=== PATIENT | male | born 1940 | race Caucasian/White ===

== ENCOUNTER 2021-02-11 16:21 | Inpatient (IN) | payer MEDICARE, OTHER ==
[~2021-02-11] VITALS: Ht 172.7 cm; Wt 62.4 kg
[2021-02-11] MEDS ORDERED: IV NORMAL SALINE 1,000ML 1,000 ML IV SCH (17:00)
--- NOTE | 2021-02-11 17:13 | EKG ---
[address] [address] Test Date: 2021-02-11 Test Time: 17:04:53 Pat Name: CLINTON KWOK Department: Room: Gender: M Table Runner: ESTIVEN : 1940 Requested By: RENETTA HURLEY Order Number: [id number] Reading MD: Measurements Intervals [place] Rate: 51 P: 37 [place]: 176 QRS: 69 QRSD: 102 T: 36 QT: 466 QTc: 431 Interpretive Statements SINUS RHYTHM ATRIAL PREMATURE COMPLEX(ES) R-S TRANSITION ZONE IN V LEADS DISPLACED TO THE LEFT NO SPECIFIC ECG ABNORMALITIES RI6.02 No previous ECG available for comparison
[2021-02-11 17:40] LABS: BACTERIA,URINE 0 /HPF (0-FEW); BILIRUBIN,URINE NEG (NEG); CLARITY,URINE CLEAR; COLOR,URINE YELLOW; GLUCOSE,URINE NEG (NEG); NITRITE,URINE NEG (NEG); RBC,URINE OCC /HPF (0-2); SQUAMOUS EPITHELIAL CELL,UR OCC /LPF; UROBILINOGEN,URINE 0.2 mg/dL (0.2 mg/dL)
[2021-02-11 17:47] LABS: AMPHETAMINE/METHAMPHETAMINE NEG (NEG); BARBITURATES NEG (NEG); BENZODIAZEPINES NEG (NEG); CANNABINOIDS NEG (NEG); COCAINE NEG (NEG); METHADONE NEG (NEG); OPIATES NEG (NEG); PHENCYCLIDINE NEG (NEG)
[2021-02-11 18:01] LABS: BASO % 0 % (0-3); CALCIUM 9.4 mg/dL (8.5-10.1); CREATININE 0.9 mg/dL (0.7-1.3); EOS # 0.1 x10^3/uL (0.0-0.7); EOS % 1 % (0-3); GFR 81.4; HEMATOCRIT 44.5 % (39.0-53.0); HEMOGLOBIN 15.2 g/dL (13.0-17.5); LYMPH # 0.8 x10^3/uL (1.0-4.8); LYMPH % 9 % (24-48); MEAN CORPUSCULAR HEMOGLOBIN 32 pg (25-35); MEAN CORPUSCULAR HGB CONC 34 g/dL (31-37); MEAN CORPUSCULAR VOLUME 94 fL (79-100); MONO # 0.7 x10^3/uL (0.0-1.1); MONO % 7 % (0-9); NEUT # 7.6 x10^3uL (1.8-7.7); NEUT % 83 % (31-73); PLATELET COUNT 161 x10^3/uL (140-400); POTASSIUM 3.6 mmol/L (3.5-5.1); RED BLOOD COUNT 4.76 x10^6/uL (4.30-5.70); WHITE BLOOD COUNT 9.2 x10^3/uL (4.0-11.0)
--- NOTE | 2021-02-11 18:04 | PHYS DOC ---
Past History Past Medical History: Arthritis, Dementia, Other Past Medical History Gait disorder, frequent falls (CHARU APARICIO MD) General Adult EDM: Chief Complaint: MECHANICAL FALL HPI: HPI: 81 yo M past medical history of Alzheimer's dementia, hypertension, hyperlipidemia, BPH and angina/CAD? (on ranexa and ASA), presents the ED brought in by EMS with concern for falling down around 4:45 PM. Patient had a witnessed fall by his son and [id number]. Patient fell down the stairs yesterday and landed on his back on tile floor. Did not lose consciousness at this time. Patient was able to get up and sit on the stairs. Son reported that had to pull patient into his room and left him on the floor around 7 PM last night. They checked in on him 9:15 AM and patient was still on the floor of his room. Around 2 PM patient was still there so they called 911. RN called home health nurse who reported [facility] EMS states pt has minimal speech but can usually get around with walker or assistance. Due to patient's dementia history and medications were obtained from EMS notification (RENETTA HURLEY DO) Review of Systems: Review of Systems: Cannot evaluate review of systems due to patient's dementia (RENETTA HURLEY DO) Current Medications: Current Meds: Current Medications Medications (Trade) Dose Ordered Sig/Jerilyn Start Time Stop Time Status Last Admin Dose Admin Sodium Chloride 1,000 ml @ 1,000 mls/hr Q1H 02/11/21 17:00 02/11/21 17:59 DC 02/11/21 17:21 1,000 MLS/HR (RENETTA HURLEY DO) Allergies: Allergies: Allergies Coded Allergies Type Severity Reaction Last Updated Verified Beta-Blockers (Beta-Adrenergic Bloc Allergy Unknown 02/11/21 Yes Penicillins Allergy Unknown 02/11/21 Yes atenolol Allergy Unknown 02/11/21 Yes calcipotriene Allergy Unknown 02/11/21 Yes clopidogrel Allergy Unknown 02/11/21 Yes metoprolol Allergy Unknown 02/11/21 Yes (RENETTA HURLEY DO) Physical Exam: PE: Constitutional: Frail, unkept but nontoxic appearance HENT: No hematoma, looks to both sides, no conjuctival injection Eyes: EOMI, conjunctiva normal, no discharge. Neck: Normal range of motion, supple, no midline step-offs or crepitus with palpation Cardiovascular: S1/2 present, bradycardia Lungs & Thorax: bilateral equal chest rise, no tachypnea or increased work of breathing Abdomen: soft, no tenderness, large inguinal hernias bilaterally-no grimace with palpation, clothing soiled with urine Skin: Warm, dry, Back: No tenderness, approximately 2-4 linear abrasions over right cva (large scratch) Extremities: abrasions/carpet rashfrom being dragged? over left lateral knee, no lower extremity edema, Neurologic: Alert but not verbal, E4 M4 V1 = GCS9 no focal deficits noted. [] Psychologic: Calm, no agitation (RENETTA HURLEY DO) Current Patient Data: Labs: Laboratory Tests Test 02/11/21 16:34 Urine Collection Type U cath Urine Color Yellow Urine Clarity Clear Urine pH 5.5 Urine Specific [place] 1.020 Urine Protein Neg (NEG-TRACE) Urine Glucose (UA) Neg mg/dL (NEG) Urine Ketones (Stick) Neg mg/dL (NEG) Urine Blood Neg (NEG) Urine Nitrite Neg (NEG) Urine Bilirubin Neg (NEG) Urine Urobilinogen Dipstick 0.2 mg/dL (0.2 mg/dL) Urine Leukocyte Esterase Trace (NEG) Urine RBC Occ /HPF (0-2) Urine WBC 1-4 /HPF (0-4) Urine Squamous Epithelial Cells Occ /LPF Urine Bacteria 0 /HPF (0-FEW) Urine Opiates Screen Neg (NEG) Urine Methadone Screen Neg (NEG) Urine Barbiturates Neg (NEG) Urine Phencyclidine Screen Neg (NEG) Urine Amphetamine/Methamphetamine Neg (NEG) Urine Benzodiazepines Screen Neg (NEG) Urine Cocaine Screen Neg (NEG) Urine Cannabinoids Screen Neg (NEG) Urine Ethyl Alcohol Neg (NEG) (NOARENETTA DO) EKG: EKG: Sinus bradycardia 51 bpm, no axis deviation, normal intervals, no T wave inversions, no ST elevations or ST depressions (NOARENETTA DO) EKG: My interpretation of EKG shows a sinus rhythm at 51 bpm. Appears to be bradycardia. Does have atrial premature complexes and baseline artifact. No findings acute STEMI with contralateral changes. Does generally appear to have a bimodal P wave before most QRS complexes (CHARU APARICIO MD) Radiology/Procedures: Radiology/Procedures: [] (RENETTA HURLEY DO) Radiology/Procedures: [address] [address] IMAGING REPORT Signed PATIENT: CLINTON KWOK ACCOUNT: [id number] : 1940 LOCATION: ER AGE: 81 SEX: M EXAM STATUS: REG ER ORD. PHYSICIAN: RENETTA HURLEY DO REASON: ALTERED MENTAL STATUS, FALL PROCEDURE: CT THORACIC SPINE WO CONTRAST CT LUMBAR SPINE WO, CT CHEST+ABD+PELVIS W, CT THORACIC SPINE WO, CT HEAD AND C- SPINE WO dated 02/11/2021 5:06 PM. Comparison: None. Clinical Indication: Reason: ALTERED MENTAL STATUS / Spl. Instructions: / History: HEAD AND NECK PAIN AFTER FALL Technical factors: Contiguous 5 mm axial images of the head were obtained from the skullbase to the vertex. No contrast was administered. In addition, 3 mm axial images of the cervical, thoracic and lumbar spine were acquired with thin cut coronal and sagittal reconstructions. One or more of the following individualized dose reduction techniques were utilized for this examination: 1. Automated exposure control 2. Adjustment of the mA and/or kV according to patient size 3. Use of iterative reconstruction technique Findings head: Ventricles and sulci are mildly prominent for age. No midline shift or mass effect. Moderate patchy low density in the deep/subcortical periventricular white matter. No hemorrhage or extra-axial collection. Posterior fossa and b rainstem unremarkable. Visualized paranasal sinuses and mastoid air cells are clear. No apparent calvarial abnormality. IMPRESSION HEAD: 1. No evidence of acute cranial hemorrhage or mass. 2. Moderate chronic small vessel ischemic changes and atrophy. Findings spine: Images were acquired from the skull base to T3. There is slight anterolisthesis of C4 on C5. Sagittal alignment is otherwise anatomic. Vertebral body heights are maintained. No prevertebral soft tissue swelling. Posterior elements are intact. No evidence of fracture. Moderate endplate hypertrophic changes throughout. There is severe disc space narrowing at C5-C6, C6-C7 and C7-T1. Moderate multilevel uncovertebral spurring and facet arthropathy. There is resultant mild central stenosis at C5-C6 and C6- C7. Moderate to severe bilateral foraminal stenosis at C4-C5 with mild to moderate foraminal narrowing at C5-C6 and C6-C7. Images of the thoracic spine show normal sagittal alignment. Vertebral body heights are maintained. Mild endplate hypertrophic changes throughout. Posterior elements are intact. No evidence of fracture. There is multilevel disc space narrowing and facet arthropathy. No significant central canal compromise. Mild to moderate foraminal narrowing at the mid to lower thoracic levels. Images of the lumbar spine show grade 1 anterolisthesis of L4 on L5. Sagittal alignment is otherwise anatomic. Vertebral body heights are maintained. Posterior elements are intact. No evidence of fracture. Moderate endplate hypertrophic changes throughout with moderate disc space narrowing at L4-L5 and L5-S1. There is resultant moderate bilateral foraminal narrowing at L3-L4 and L4-L5. Moderate central stenosis at L4-L5. Visualized soft tissue structures are unremarkable. IMPRESSION CERVICAL, THORACIC AND LUMBAR SPINE: 1. No evidence of fracture or malalignment. 2. Moderate multilevel spondylosis. Please see above report for details. Electronically signed by: Julio Cesar Adrian MD (02/11/2021 8:55 PM) [facility] [place] SIGNED BY: JULIO CESAR ADRIAN MD DATE: 02/11/212042 CC: KALA GARCIA; CHARU APARICIO MD; RENETTA HURLEY DO ~[facility] [address] [place] [address] IMAGING REPORT Signed PATIENT: CLINTON KWOK ACCOUNT: [id number] : 1940 LOCATION: ER AGE: 81 SEX: M EXAM STATUS: REG ER ORD. PHYSICIAN: RENETTA HURLEY DO REASON: abrasion to lateral knee-dragged on floor PROCEDURE: KNEE LEFT 3V Three-view left knee dated 02/11/2021. No comparison available. Clinical data indication: Pain after injury. FINDINGS: 3 views left knee show normal bony alignment. No displaced fracture. Evidence of prior total neoplastic. Femoral and tibial components are intact. No periprosthetic fracture or malalignment. No apparent joint effusion. Prominent ossific body in the posterior medial soft tissues may represent loose body or heterotopic bone from prior surgery. IMPRESSION: No acute radiographic abnormality. Status post left knee arthroplasty. Electronically signed by: Julio Cesar Adrian MD (02/11/2021 9:38 PM) [facility] [place]CTATED AND SIGNED BY: JULIO CESAR ADRIAN MD DATE: 02/11/212135 CC: KALA GARCIA; CHARU APARICIO MD; RENETTA HURLEY DO ~[facility] 0 (CHARU APARICIO MD) Heart Score: C/O Chest Pain: N/A Risk Factors: Risk Factors: DM, Current or recent (<one month) smoker, HTN, HLP, family history of CAD, obesity. Risk Scores: Score 0 - 3: 2.5% MACE over next 6 weeks - Discharge Home Score 4 - 6: 20.3% MACE over next 6 weeks - Admit for Clinical Observation Score 7 - 10: 72.7% MACE over next 6 weeks - Early Invasive Strategies (RENETTA HURLEY DO) Course & Med Decision Making: Course & Med Decision Making Pertinent Labs and Imaging studies reviewed. (See chart for details) Concern for fall in the setting of dementia, unclear ideology. ED work-up just to evaluate for trauma/infection/syncope vs symptomatic bradycardia?/toxidrome has been initiated. Due to shift change patient was signed out to Dr. Aparicio for further evaluation and disposition. Labs and imaging pending at shift change. (RENETTA HURLEY DO) Course & Med Decision Making See Dr. Hurley chart for details. Discussed with son pt. condition. [phone] Pt. recently has modification in meds for his periodic hypertension. Currently following with Dr. Rodney at [facility] clinic, Dr. Jamison in the past as well as In chronic pain and GI clinic Discussed presentation, testing and tx. plan with Dr. Leung- admit to his service for falls. Impression: 1. Dementia 2. Frequent Falls 3. Arthritis- DJD 4. Hypotension 5. Dehydration 6. Hx UTI- on Antibiotics (CHARU APARICIO MD) Dragon Disclaimer: Dragon Disclaimer: This electronic medical record was generated, in whole or in part, using a voice recognition dictation system. (RENETTA HURLEY DO) Departure Departure: Impression: Primary Impression: Fall Referrals: KALA GARCIA (PCP) Una Disclaimer This chart was dictated in whole or in part using Voice Recognition software in a busy, high-work load, and often noisy Emergency Department environment. It may contain unintended and wholly unrecognized errors or omissions. (CHARU APARICIO MD) RENETTA HURLEY DO Feb 11, 2021 18:03 CHARU APARICIO MD Feb 11, 2021 19:42
[2021-02-11 18:14] LABS: ALBUMIN 3.7 g/dL (3.4-5.0); ALBUMIN/GLOBULIN RATIO 1.2 (1.0-1.7); TOTAL PROTEIN 6.7 g/dL (6.4-8.2)
[2021-02-11 18:16] LABS: ACETAMIN < 2.0 mcg/mL (10-30); SALIC < 2.8 mg/dL (2.8-20.0)
[2021-02-11] MEDS ORDERED: IOHEXOL 300 MG/ML 75 ML VIAL. IV ONE (18:30)
--- NOTE | 2021-02-11 20:57 | RAD ---
CT LUMBAR SPINE WO, CT CHEST+ABD+PELVIS W, CT THORACIC SPINE WO, CT HEAD AND C-SPINE WO dated 1 5:06 PM. Comparison: None. Clinical Indication: Reason: ALTERED MENTAL STATUS / Spl. Instructions: / History: HEAD AND NECK MARYLU N AFTER FALL Technical factors: Contiguous 5 mm axial images of the head were obtained from the skullbase to the v ertex. No contrast was administered. In addition, 3 mm axial images of the cervical, thoracic and lum bar spine were acquired with thin cut coronal and sagittal reconstructions. One or more of the following individualized dose reduction techniques were utilized for this examinat ion: 1. Automated exposure control 2. Adjustment of the mA and/or kV according to patient size 3. Use of iterative reconstruction technique Findings head: Ventricles and sulci are mildly prominent for age. No midline shift or mass effect. Moderate patchy l ow density in the deep/subcortical periventricular white matter. No hemorrhage or extra-axial collect ion. Posterior fossa and brainstem unremarkable. Visualized paranasal sinuses and mastoid air cells are clear. No apparent calvarial abnormality. IMPRESSION HEAD: 1. No evidence of acute cranial hemorrhage or mass. 2. Moderate chronic small vessel ischemic changes and atrophy. Findings spine: Images were acquired from the skull base to T3. There is slight anterolisthesis of C4 on C5. Sagittal alignment is otherwise anatomic. Vertebral body heights are maintained. No prevertebral soft tissue swelling. Posterior elements are intact. No evidence of fracture. Moderate endplate hypertrophic changes throughout. There is severe disc space narrowing at C5-C6, C6 -C7 and C7-T1. Moderate multilevel uncovertebral spurring and facet arthropathy. There is resultant m ild central stenosis at C5-C6 and C6-C7. Moderate to severe bilateral foraminal stenosis at C4-C5 wit h mild to moderate foraminal narrowing at C5-C6 and C6-C7. Images of the thoracic spine show normal sagittal alignment. Vertebral body heights are maintained. M ild endplate hypertrophic changes throughout. Posterior elements are intact. No evidence of fracture. There is multilevel disc space narrowing and facet arthropathy. No significant central canal comprom ise. Mild to moderate foraminal narrowing at the mid to lower thoracic levels. Images of the lumbar spine show grade 1 anterolisthesis of L4 on L5. Sagittal alignment is otherwise anatomic. Vertebral body heights are maintained. Posterior elements are intact. No evidence of fractu re. Moderate endplate hypertrophic changes throughout with moderate disc space narrowing at L4-L5 and L5-S1. There is resultant moderate bilateral foraminal narrowing at L3-L4 and L4-L5. Moderate centra l stenosis at L4-L5. Visualized soft tissue structures are unremarkable. IMPRESSION CERVICAL, THORACIC AND LUMBAR SPINE: 1. No evidence of fracture or malalignment. 2. Moderate multilevel spondylosis. Please see above report for details. Electronically signed by: Julio Cesar Adrian MD (02/11/2021 8:55 PM) DANIEL
--- NOTE | 2021-02-11 21:41 | RAD ---
Three-view left knee dated 02/11/2021. No comparison available. Clinical data indication: Pain after injury. FINDINGS: 3 views left knee show normal bony alignment. No displaced fracture. Evidence of prior total neoplast ic. Femoral and tibial components are intact. No periprosthetic fracture or malalignment. No apparent joint effusion. Prominent ossific body in the posterior medial soft tissues may represent loose body or heterotopic bone from prior surgery. IMPRESSION: No acute radiographic abnormality. Status post left knee arthroplasty. Electronically signed by: Julio Cesar Adrian MD (02/11/2021 9:38 PM) DANIEL
[2021-02-12] MEDS ORDERED: ACETAMINOPHEN 325 MG TABLET PO PRN (00:30)
[2021-02-12] MEDS ORDERED: ONDANSETRON PF 4 MG/2 ML VIAL. IVP PRN (00:30)
[2021-02-12] MEDS: IV RINGERS SOLUTION,LACTATED 1,000 ML IV SCH ×3 (02:25→19:48)
[2021-02-12 02:26] VITALS: BP 156/95
[2021-02-12] MEDS ORDERED: IPRATRPIUM/ALBUTEROL 0.5/2.5MG 3 ML NEBU. ONE (05:08)
[2021-02-12] MEDS: IPRATRPIUM/ALBUTEROL 0.5/2.5MG 3 ML NEBU. NEB SCH ×4 (05:12→20:05)
[2021-02-12 05:20] VITALS: BP 124/76
[2021-02-12] MEDS ORDERED: ASPI-630 PO (05:42)
[2021-02-12] MEDS ORDERED: FINA5TAB4 PO (05:42)
[2021-02-12] MEDS ORDERED: ATOR40TA59 PO (05:42)
[2021-02-12] MEDS ORDERED: ISOS60TA55 PO (05:50)
[2021-02-12] MEDS ORDERED: OMEG-33 PO (05:50)
[2021-02-12] MEDS ORDERED: VIT1CAPS12 PO (05:50)
[2021-02-12] MEDS ORDERED: POLY17PO52 PO (05:50)
[2021-02-12] MEDS ORDERED: RANO500T2 PO (05:50)
[2021-02-12] MEDS ORDERED: MEMA10TA PO (05:50)
[2021-02-12] MEDS ORDERED: ATROPINE 0.5 MG/5 ML DISP.SYRIN. IV ONE (10:30)
[2021-02-12 11:08] VITALS: BP 101/65
--- NOTE | 2021-02-12 11:13 | HP ---
ADMIT DATE: 02/12/2021 ATTENDING PHYSICIAN: Dr. Shelton. CHIEF COMPLAINT: Falls and obtundation. HISTORY OF PRESENT ILLNESS: The patient is a 81-year-old gentleman with profound dementia, cared for by family at home. He has been falling. The son dragged him into the bed and he laid there on his back for quite a while. He did not lose consciousness. He was sent to the ED; extensive workup there, they did a total body CT scan. The head shows atrophy of the brain. There were no acute strokes or bleeds. There were no obvious long bone fractures. The patient appeared mildly dehydrated. He was slightly bradycardic, but perfusing. He is unresponsive at this time. In talking with the family, they are unable to care for him. They are wanting a higher level of care. We will get our case briefer look for placement. He will be admitted then for monitoring in a safe long term environment as the family cannot care for him. PAST MEDICAL HISTORY: Significant for Alzheimer's dementia that is getting worse, hypertension, hyperlipidemia, benign prostatic hypertrophy; coronary artery disease, currently on Ranexa and aspirin. ALLERGIES: HE HAS ALLERGIES TO BETA BLOCKERS, PENICILLINS, ATENOLOL, MOST LIKELY DUE TO BRADYCARDIA; CLOPIDOGREL AND METOPROLOL. CURRENT MEDICINES: Reviewed. At home, he was taking Ranexa, Lipitor, omega 3 fish oil, Imdur, aspirin, Namenda, MiraLax, finasteride, and multivitamin. SOCIAL HISTORY: He is a nonsmoker, nondrinker. FAMILY HISTORY: Unobtainable. REVIEW OF SYSTEMS: Unobtainable due to the patient's current mental state. PHYSICAL EXAMINATION: GENERAL: When I saw him, this is an obtunded elderly gentleman who was poorly responsive to noxious stimuli. VITAL SIGNS: His initial vital signs showed a heart rate of 50 per minute. It appears to be a sinus bradycardia. His blood pressure was 156/95 earlier on admission, he had a heart rate of 62 per minute, oxygen saturation 96% on room air, temperature 97.4 degrees Fahrenheit. HEENT: Head is without trauma. Pupils are reactive. Sclerae are nonicteric. Oropharynx clear. NECK: Supple, no bruits. LUNGS: Shallow respirations. CARDIOVASCULAR: Showed regular heart tones. No gallops. ABDOMEN: Soft, no guarding or rebound tenderness. EXTREMITIES: Without edema. NEUROLOGIC FINDINGS: Obtunded, nonverbal, bedridden and nonambulatory. IMAGING STUDIES: As I said total body imaging CT of the head showed no acute strokes, no long bone fractures that are obvious. No pathology in the abdomen. LABORATORY DATA: His CBC showed a hemoglobin of 15.2 g/dL with white count of 9200. Electrolytes; BUN and creatinine all within normal range. Cardiac enzymes negative for myocardial necrosis. CPK is 439, creatinine 0.9 mg percent. Chest, abdomen and pelvis CT showed no long bone fractures. No obstruction or pathology identified. ASSESSMENT: 1. A 81-year-old gentleman with increased obtundation and frequent falls at home. He has profound dementia. He has reached to the point in his life where the family cannot take care of him at home. 2. Profound dementia. 3. Asymptomatic bradycardia at this time with sensitivity to BETA-BLOCKERS. 4. Mild dehydration. 5. History of coronary artery disease. PLAN: 1. Admit to the inpatient. 2. Gentle IV hydration. 3. Telemetry monitoring. 4. We shall ascertain his code status. I believe he does have advanced directive for DNR. 5. We will get our case briefer to look for placement. SARA SHELTON MD DR: JAYASHREE/marcia JOB#: [id number] / [id number]
--- NOTE | 2021-02-12 12:10 | EKG ---
[address] [address] Test Date: 2021-02-12 Test Time: 12:08:45 Pat Name: CLINTON KWOK Department: Room: 109 A Gender: M Die Tester: : 1940 Requested By: SARA SHELTON Order Number: [id number] Reading MD: Measurements Intervals [place] Rate: 60 P: 0 [place]: 138 QRS: 65 QRSD: 102 T: 33 QT: 448 QTc: 453 Interpretive Statements SINUS RHYTHM NO SPECIFIC ECG ABNORMALITIES RI6.01 Compared to ECG 02/11/2021 17:04:53 No significant changes
[2021-02-12 16:12] VITALS: BP 113/71
[2021-02-12] MEDS: PANTOPRAZOLE IV 40 MG VIAL. IVP SCH (17:47)
[2021-02-12 20:06] VITALS: BP 114/80
[2021-02-12 23:43] VITALS: BP 139/77
[2021-02-13] MEDS: IPRATRPIUM/ALBUTEROL 0.5/2.5MG 3 ML NEBU. NEB SCH (05:18)
[2021-02-13 05:22] VITALS: BP 134/97
[2021-02-13 06:51] LABS: BASO # 0.1 x10^3/uL (0.0-0.2); BASO % 1 % (0-3); EOS # 0.2 x10^3/uL (0.0-0.7); EOS % 2 % (0-3); HEMATOCRIT 39.4 % (39.0-53.0); HEMOGLOBIN 13.3 g/dL (13.0-17.5); LYMPH # 1.3 x10^3/uL (1.0-4.8); LYMPH % 15 % (24-48); MEAN CORPUSCULAR HEMOGLOBIN 32 pg (25-35); MEAN CORPUSCULAR HGB CONC 34 g/dL (31-37); MEAN CORPUSCULAR VOLUME 94 fL (79-100); MONO # 0.6 x10^3/uL (0.0-1.1); MONO % 7 % (0-9); NEUT # 6.5 x10^3uL (1.8-7.7); NEUT % 75 % (31-73); PLATELET COUNT 146 x10^3/uL (140-400); RED BLOOD COUNT 4.21 x10^6/uL (4.30-5.70); WHITE BLOOD COUNT 8.7 x10^3/uL (4.0-11.0)
[2021-02-13] MEDS ORDERED: ATROPINE 0.5 MG/5 ML DISP.SYRIN. IV ONE (07:00)
[2021-02-13 07:05] LABS: ALBUMIN 2.8 g/dL (3.4-5.0); ALBUMIN/GLOBULIN RATIO 0.9 (1.0-1.7); CALCIUM 8.6 mg/dL (8.5-10.1); CREATININE 0.8 mg/dL (0.7-1.3); GFR 93.3; TOTAL BILIRUBIN 1.8 mg/dL (0.2-1.0); TOTAL PROTEIN 5.8 g/dL (6.4-8.2)
[2021-02-13 07:11] LABS: POTASSIUM 2.9 mmol/L (3.5-5.1)
[2021-02-13] MEDS ORDERED: MAGNESIUM SULFATE 1GM 100 ML IV ONE (08:00)
[2021-02-13] MEDS: POTASSIUM CHLORIDE 20 MEQ TABLET.ER. PO SCH ×2 (08:17→21:13)
[2021-02-13] MEDS: PANTOPRAZOLE IV 40 MG VIAL. IVP SCH (08:26)
[2021-02-13] MEDS: IV RINGERS SOLUTION,LACTATED 1,000 ML IV SCH (08:28)
[2021-02-13 11:18] VITALS: BP 134/75
[2021-02-13 16:00] VITALS: BP 138/84
[2021-02-13 19:00] VITALS: BP 155/87
--- NOTE | 2021-02-13 20:13 | PN ---
DATE: 02/13/2021 ATTENDING PHYSICIAN: Dr. Shelton. SUBJECTIVE: More awake today. He is responsive. I asked him, if he was hungry, he said not much appetite. He understands, but he is still lethargic, although less so. OBJECTIVE FINDINGS: VITAL SIGNS: Yesterday, heart rate was in the 40s this morning, it has dropped down to 39 per minute. We had to administer a small dose of atropine, which got his rate up to 60 and sinus, blood pressure is 134/97, oxygen saturation 92% on room air. He is afebrile. HEENT: Head is without trauma. Pupils are reactive. Sclerae nonicteric. Oropharynx clear. NECK: Supple. LUNGS: Shallow respirations, but clear. CARDIOVASCULAR: Showed bradycardic rhythm. No gallops. ABDOMEN: Soft, no guarding, rebound tenderness. EXTREMITIES: Without edema. NEUROLOGIC FINDING: He is less lethargic. LABORATORY DATA: Potassium is 2.9 mEq per liter. Creatinine of 0.8. Troponin was negative. A total body CT was done. There is no obvious long bone fractures or new strokes. ASSESSMENT: 1. A 81-year-old gentleman with profound dementia. 2. Frequent falls. 3. Probable sick sinus syndrome with bradycardia. 4. Dehydration. 5. Known history of coronary artery disease. PLAN: 1. He got another dose of atropine, which brought his heart rate up. 2. Continue IV hydration. 3. Potassium and magnesium replacement. 4. I should try to contact his family to determine whether he needs to see a electrical project engineer. The problem with placing a pacemaker is its limited lifespan and this may or may not be indicated. In addition, we will need to discuss feeding tube. He remains a full code at this time. SARA SHELTON MD DR: JAYASHREE/marcia JOB#: [id number] / [id number]
[2021-02-13 23:00] VITALS: BP 174/82
[2021-02-14] MEDS: IV RINGERS SOLUTION,LACTATED 1,000 ML IV SCH ×2 (00:59→12:05)
[2021-02-14 05:37] VITALS: BP 183/89
[2021-02-14 06:55] LABS: HEMATOCRIT 37.5 % (39.0-53.0); HEMOGLOBIN 12.8 g/dL (13.0-17.5); RED BLOOD COUNT 4.02 x10^6/uL (4.30-5.70); RED CELL DISTRIBUTION WIDTH 13.7 % (11.5-14.5); WHITE BLOOD COUNT 7.8 x10^3/uL (4.0-11.0)
[2021-02-14 07:05] LABS: ALBUMIN 2.8 g/dL (3.4-5.0); ALBUMIN/GLOBULIN RATIO 0.9 (1.0-1.7); CALCIUM 8.8 mg/dL (8.5-10.1); CREATININE 0.8 mg/dL (0.7-1.3); GFR 93.3; POTASSIUM 3.8 mmol/L (3.5-5.1); TOTAL BILIRUBIN 2.2 mg/dL (0.2-1.0); TOTAL PROTEIN 5.9 g/dL (6.4-8.2)
[2021-02-14] MEDS: PANTOPRAZOLE IV 40 MG VIAL. IVP SCH (08:42)
[2021-02-14] MEDS: POTASSIUM CHLORIDE 20 MEQ TABLET.ER. PO SCH ×2 (08:43→21:03)
--- NOTE | 2021-02-14 09:19 | PN ---
DATE: 02/14/2021 ATTENDING PHYSICIAN: Dr. Shelton. SUBJECTIVE: More awake today. He is responsive. He is comfortable. He is not any acute distress. He remains profoundly demented and bedridden. OBJECTIVE FINDINGS: VITAL SIGNS: Blood pressure this morning is 156/87, pulse fluctuates between 50 and 66 per minute. T-max yesterday was 100.2. He is afebrile this morning. Oxygen saturation 94% on room air. HEENT: Head is without trauma. Pupils are reactive. Sclerae nonicteric. Oropharynx is clear. NECK: Supple. LUNGS: Clear to auscultation. CARDIOVASCULAR: Showed regular heart tones. No gallops. There is a bradycardic rhythm. When I saw him, his pulse was 58 per minute and regular. ABDOMEN: Soft. EXTREMITIES: Without edema. SKIN: Warm and dry. NEUROLOGIC: He is more awake. He does respond to some questions. He is nonambulatory. He remains profoundly demented. LABORATORY DATA: Hemoglobin today is 12.8 g/dL with a white count of 7800. Electrolytes improved. Potassium is up to 3.8 mEq with replacement. Creatinine is 0.8 mg/dL. Bilirubin is elevated at 2.2. Transaminases were normal. ASSESSMENT: 1. A 81-year-old gentleman with profound dementia. 2. Frequent falls. 3. Dehydration. 4. Probable sick sinus syndrome with bradycardia, currently perfusing. 5. Dehydration, rehydrated. 6. Known history of coronary artery disease. 7. Underlying Alzheimer's dementia. PLAN: 1. Diet as tolerated. 2. I got a hold of the son, the durable power of dean of admissions, he is looking at a facility in the [place], [place]. 3. I will get our special education case manager visit with him. 4. We discussed code status, he is caught in between as there is no family consensus, the who is also demented wants him to have heroics, but daughter who is more reasonable does not. She has not been contacted. I did get a hold of the son. 5. We talked about Cardiology consult pacemaker. He declines at this time, he is going to find out. Tentative discharge plan if no further heroics will be tomorrow to the senior care, but they have not been out there to see the facility yet. SARA SHELTON MD DR: JAYASHREE/marcia JOB#: [id number] / [id number]
[2021-02-14 10:05] VITALS: BP 157/89
[2021-02-14 14:39] VITALS: BP 150/79
[2021-02-14 20:46] VITALS: BP 160/88
[2021-02-14 23:00] VITALS: BP 167/83
[2021-02-15] MEDS: IV RINGERS SOLUTION,LACTATED 1,000 ML IV SCH ×2 (02:45→12:19)
[2021-02-15 05:52] VITALS: BP 155/94
[2021-02-15 06:50] LABS: HEMATOCRIT 36.5 % (39.0-53.0); HEMOGLOBIN 12.5 g/dL (13.0-17.5); RED BLOOD COUNT 3.91 x10^6/uL (4.30-5.70); RED CELL DISTRIBUTION WIDTH 13.4 % (11.5-14.5); WHITE BLOOD COUNT 6.5 x10^3/uL (4.0-11.0)
[2021-02-15 07:04] LABS: ALBUMIN 2.6 g/dL (3.4-5.0); ALBUMIN/GLOBULIN RATIO 0.8 (1.0-1.7); CALCIUM 8.7 mg/dL (8.5-10.1); CREATININE 0.8 mg/dL (0.7-1.3); GFR 93.3
[2021-02-15] MEDS: PANTOPRAZOLE IV 40 MG VIAL. IVP SCH (07:45)
--- NOTE | 2021-02-15 08:53 | PN ---
DATE: 02/14/2021 ATTENDING PHYSICIAN: Dr. Shelton. SUBJECTIVE: The patient is asleep and snoring. He is in no obvious distress. He is perfusing with an adequate blood pressure despite his heart rate. OBJECTIVE FINDINGS: VITAL SIGNS: Heart rate on the monitor, had been recorded anywhere between 50 and 84. When I saw him this morning, he is in a sinus bradycardia with a rate of 51 per minute, blood pressure is 155/94. SKIN: Warm and dry, which means that he was perfusing oxygen saturation 95% on room air, temperature 98.3 degrees Fahrenheit. HEENT: Head is without trauma. Pupils are reactive. Sclerae nonicteric. Oropharynx is clear. NECK: Supple, no bruits identified. LUNGS: Otherwise clear. CARDIOVASCULAR: Showed regular heart tones. Bradycardic rhythm. No gallops. ABDOMEN: Soft. EXTREMITIES: Without edema. NEUROLOGIC: Profoundly confused. SKIN: Warm and dry. LABORATORY DATA: Hemoglobin this morning is 12.5 g/dL with a white count of 6500. Chemistry panel: BUN is 14, creatinine 0.8 mg percent, potassium replaced up to 4.0 mEq, total bilirubin is still at 2.0. ASSESSMENT: 1. A 81-year-old gentleman with profound dementia, inability to care for himself. 2. Frequent falls at home. 3. Dehydration, rehydrated. 4. Sick sinus syndrome with bradycardia, currently asymptomatic and perfusing. 5. Hypokalemia, replaced. 6. Underlying dementia. PLAN: 1. Diet as tolerated. 2. We are in the process of retirement placement. 3. The family was notified and they will give us guidance as to code status. 4. Because he was perfusing, I elected at this time, not to consult Cardiology for possible pacemaker placement. This would be futile in the sense that if he is terminally ill and demented, a permanent pacemaker may not be indicated. SARA SHELTON MD DR: JAYASHREE/marcia JOB#: [id number] / [id number]
[2021-02-15] MEDS: POTASSIUM CHLORIDE 20 MEQ TABLET.ER. PO SCH ×2 (09:06→20:17)
[2021-02-15 11:32] VITALS: BP 176/83
[2021-02-15 15:00] VITALS: BP 170/90
[2021-02-15 19:37] VITALS: BP 175/82
[2021-02-16] MEDS: IV RINGERS SOLUTION,LACTATED 1,000 ML IV SCH ×2 (01:52→15:35)
[2021-02-16 05:28] VITALS: BP 116/74
[2021-02-16] MEDS: POTASSIUM CHLORIDE 20 MEQ TABLET.ER. PO SCH ×2 (07:40→20:22)
[2021-02-16] MEDS: PANTOPRAZOLE IV 40 MG VIAL. IVP SCH (07:40)
[2021-02-16 11:30] VITALS: BP 113/73
[2021-02-16 14:20] VITALS: BP 120/74
--- NOTE | 2021-02-16 16:30 | PN ---
DATE: 02/16/2021 SUBJECTIVE: The patient is a 81-year-old male patient who is resting slightly propped up in bed, extremely lethargic, who is nonverbal. He does open his eyes occasionally and drifts back to sleep. He apparently slept all day yesterday and awakened for about 15 minutes and ate and went back to sleep. According to the nursing staff, he was not taking anything except Protonix and oral potassium and she was unable to even get him to take the oral potassium as he was very lethargic and sleepy. PHYSICAL EXAMINATION: GENERAL: When I examined him, he looked somewhat pale, ____ cyanosed. No lymphadenopathy, no thyromegaly. No jugular venous distention. No lower limb edema. VITAL SIGNS: His heart rate was 66, blood pressure was 113/73, temperature was 97.8, respiratory rate was 18 and oxygen saturation was 95% on room air. HEENT: Showed normocephalic, atraumatic. NECK: Supple. HEART: Normal first and second heart sounds. No gallop, rub or murmur. CHEST: Clear to auscultation. No crepitation or rhonchi. ABDOMEN: Scaphoid, soft, nontender. No guarding or rigidity. No organomegaly. All hernial orifice intact. Bowel sounds normal. NEUROLOGIC: He is encephalopathic. He does open his eyes briefly and drifts back to sleep. All his cranial nerves seem to be grossly intact. He requires 3-person assist to get him to stand up. His intake over the last 24 hours was 1350, output was 3000. LABORATORY DATA: As of yesterday, his white cell count was 6500, hemoglobin 12.5, hematocrit 36.5, MCV 94 and platelet count of 142,000. His chemistry as of yesterday showed serum sodium 140, potassium 4, chloride 105, bicarbonate 28, anion gap of 7, BUN 14, creatinine 0.8, estimated GFR was 93 mL per minute. His glucose was 94, calcium was 8.7. Total bilirubin 2. AST, ALT, alkaline phosphatase were normal. Total protein was 6, albumin was 2.6. ASSESSMENT: 1. This is a 81-year-old male patient with profound dementia and severe self-care deficit. He is total care. Require assistance for activities of daily living. 2. The patient has frequent falls at home. 3. The patient was dehydrated. His BUN was 21, creatinine was 0.9. Now, his BUN is 14 and creatinine 0.8. Hypokalemia with serum potassium was 2.9, today it is 4. 4. Sick sinus syndrome with bradycardia, currently asymptomatic. PLAN: Obviously to continue with IV fluid. The patient is not really awake enough even to be safe to eat or drink. I think it is appropriate to consult or consider hospice care. Apparently, our nursing home social worker is working to see if he can be placed in a intermediate facility or perhaps more appropriately to consider hospice and end of life care. JILLIAN MATHEW MD DR: AROLDO/marcia JOB#: [id number] / [id number]
[2021-02-16 19:43] VITALS: BP 122/77
[2021-02-16] MEDS ORDERED: ACETAMINOPHEN 325 MG TABLET PO PRN (19:45)
[2021-02-17] MEDS: IV RINGERS SOLUTION,LACTATED 1,000 ML IV SCH (04:55)
[2021-02-17 05:34] VITALS: BP 169/84
[2021-02-17 07:18] LABS: HEMATOCRIT 37.1 % (39.0-53.0); HEMOGLOBIN 12.7 g/dL (13.0-17.5); RED BLOOD COUNT 3.98 x10^6/uL (4.30-5.70); RED CELL DISTRIBUTION WIDTH 13.4 % (11.5-14.5); WHITE BLOOD COUNT 6.9 x10^3/uL (4.0-11.0)
[2021-02-17 07:31] LABS: ALBUMIN 2.4 g/dL (3.4-5.0); ALBUMIN/GLOBULIN RATIO 0.7 (1.0-1.7); CALCIUM 8.9 mg/dL (8.5-10.1); CREATININE 0.8 mg/dL (0.7-1.3); GFR 93.3; POTASSIUM 4.1 mmol/L (3.5-5.1); TOTAL BILIRUBIN 1.3 mg/dL (0.2-1.0); TOTAL PROTEIN 5.9 g/dL (6.4-8.2)
[2021-02-17] MEDS: PANTOPRAZOLE IV 40 MG VIAL. IVP SCH (07:33)
[2021-02-17] MEDS: POTASSIUM CHLORIDE 20 MEQ TABLET.ER. PO SCH (10:19)
--- NOTE | 2021-02-17 14:18 | DS ---
DATE OF DISCHARGE: 02/17/2021 HOSPITAL COURSE: The patient is a 81-year-old male patient who was admitted with profound dementia and severe self-care deficit. He was found to be dehydrated and hypokalemic. He was treated with IV fluid and his potassium was replenished. The patient basically is total care, requires assistance for all activities of daily living and after a lengthy discussion with his family, the family opted for discharging home with hospice. When I saw him today, he was resting slightly propped up in bed, continued to be mostly nonverbal, encephalopathic, sleeps for a long period of time. PHYSICAL EXAMINATION: GENERAL: When I examined him, he was pale, but no jaundice, cyanosis or thyromegaly. No jugular venous distension. No lower limb edema. VITAL SIGNS: Her heart rate was 57, blood pressure was 169/84, temperature 97.7, respiratory rate was 18 and oxygen saturation was 95%. HEAD, EYES, EARS, NOSE AND THROAT: Showed normocephalic, atraumatic. NECK: Supple. HEART: Normal first and second heart sounds. No gallop, rub or murmur. CHEST: Clear to auscultation. No crepitation or rhonchi. ABDOMEN: Scaphoid, soft, nontender. No guarding or rigidity. No organomegaly. All hernial orifice intact. The bowel sounds normal. NEUROLOGIC: He is encephalopathic. He does open his eyes briefly and drifts back to sleep. All his cranial nerves are grossly intact. He requires 3-person assist to get him out to stand up. His intake was 1470, output was 2425. LABORATORY DATA: As of this morning, his white cell count was 6900, hemoglobin 13, hematocrit 37, MCV 93 and platelet count 162,000. His chemistry this morning showed a serum sodium 140, potassium 4.1, chloride 105, bicarbonate 28, anion gap of 7, BUN 20, creatinine 0.8, estimated GFR was 93 mL per minute. Her glucose was 95, calcium was 8.9. Total bilirubin, AST, ALT, alkaline phosphatase were normal. Total protein 5.9, albumin was 2.4. Urinalysis essentially unremarkable and toxic screen was negative. DISCHARGE MEDICATIONS: The patient will be discharged home to continue on his aspirin 81 mg once a day, atorvastatin 40 mg at bedtime, finasteride 5 mg daily, isosorbide mononitrate 60 mg daily, Namenda 10 mg twice a day, omega-3 fatty acid 1 capsule twice a day, polyethylene glycol 17 grams daily, Ranexa 500 mg twice a day, multivitamin with minerals, PreserVision AREDS soft gel one capsule once a day and he was also discharged on Roxanol as well as Ativan. FINAL DISCHARGE DIAGNOSES: 1. Profound dementia and severe self-care deficit. The patient is total care, requires assistance for activities of daily living. 2. Frequent falls at home. 3. Dehydration that has resolved. His BUN and creatinine has normalized. 4. Hypokalemia, resolved. His potassium is 4.1. 5. Sick sinus syndrome with bradycardia, currently asymptomatic. JILLIAN MATHEW MD DR: AROLDO/marcia JOB#: [id number] / [id number]
== END 2021-02-17 17:36 | disposition hospice, home (50) | DRG 641 ==
LOC: ER 16:21 → 1 SOUTH 02-12 00:29
PROVIDERS: ADMIT Hospitalist; ATTEND Hospitalist
DX: E86.0 Dehydration (principal); G93.40 Encephalopathy, unspecified; E87.6 Hypokalemia; E78.5 Hyperlipidemia, unspecified; F02.80 Dementia in other diseases classified elsewhere, unspecified severity, without behavioral disturbance, psychotic disturbance, mood disturbance, and anxiety; G30.9 Alzheimer's disease, unspecified; I10 Essential (primary) hypertension; I25.10 Atherosclerotic heart disease of native coronary artery without angina pectoris; M19.90 Unspecified osteoarthritis, unspecified site; N40.0 Benign prostatic hyperplasia without lower urinary tract symptoms; R29.6 Repeated falls; Z74.01 Bed confinement status; Z74.1 Need for assistance with personal care; Z87.440 Personal history of urinary (tract) infections; Z96.652 Presence of left artificial knee joint; I49.5 Sick sinus syndrome; Z88.8 Allergy status to other drugs, medicaments and biological substances; W18.39XA Other fall on same level, initial encounter; Y93.89 Activity, other specified; Y92.89 Other specified places as the place of occurrence of the external cause; Y99.8 Other external cause status; Z20.822 Contact with and (suspected) exposure to COVID-19; Z66 Do not resuscitate
CPT/HCPCS: 36415; 70450; 71260; 72125; 72128; 72131; 73562; 74177; 80053; 80307; 80329; 81001; 82550; 82947; 83605; 83690; 83735; 84484; 85025; 85027; 85610; 85730; 87040; 87077; 87086; 87186; 93005; 94640; 96361; 96374; 96376; C9113; G0480; J0461; J2060; J3475; J7120; Q9967; U0003; U0005; 97530; 99285-25; J7030